=== PATIENT | female | born 1990 | race Caucasian/White ===

== ENCOUNTER → 2016-06-30 | Outpatient (CLI) | payer OTHER ==
[~2016-06-30] MED LIST: ACET-749 PO; BSP5 PO; LMC25 PO; ONDA4TAB46 PO; OXYC-57 PO; PRENTAB26 PO
[2016-06-30 18:15] LABS: URINE APPEARANCE CLEAR (CLEAR); URINE BILIRUBIN NEG (NEG); URINE COLOR ORANGE; URINE EPITHELIAL CELL AUTO >30 /lpf (0-5); URINE NITRITE NEG (NEG); URINE PH 6.5 (4.5-7.5); URINE SPECIFIC GRAVITY 1.027 (1.000-1.030); UROBILINOGEN NEG (NEG)
[2016-06-30 18:41] LABS: MANUAL MICROSCOPIC REQUIRED? NO; REVIEW REQ? NO
[2016-07-03 02:30] LABS: CHLAMYDIA TRACH RNA*** NOT DETECTED (NOT DETECTED); GC (NEIS GONORRHOEAE)RNA** NOT DETECTED (NOT DETECTED)
== END | disposition home or self-care (01) ==
LOC: C.LABSPEC 17:43
PROVIDERS: ATTEND Obstetrics & Gynecology
DX: O09.219 Supervision of pregnancy with history of pre-term labor, unspecified trimester (principal); O09.30 Supervision of pregnancy with insufficient antenatal care, unspecified trimester; Z3A.00 Weeks of gestation of pregnancy not specified

== ENCOUNTER 2016-07-09 05:32 | Inpatient (IN) | payer OTHER ==
[2016-07-08 14:35] LABS: URINE APPEARANCE CLEAR (CLEAR); URINE BILIRUBIN NEG (NEG); URINE COLOR YELLOW; URINE EPITHELIAL CELL AUTO 20-30 /lpf (0-5); URINE NITRITE NEG (NEG); URINE PH 7.5 (4.5-7.5); URINE SPECIFIC GRAVITY 1.016 (1.000-1.030); UROBILINOGEN NEG (NEG)
[2016-07-08 14:38] LABS: MANUAL MICROSCOPIC REQUIRED? NO; REVIEW REQ? NO; SULFASALICYLIC ACID POS (NEG)
[2016-07-08 14:53] LABS: MEAN CELL VOLUME 86.2 fL (80-100); MEAN CORPUSCULAR HEMOGLOBIN 28.8 pg (25-34); MEAN CORPUSCULAR HGB CONC 33.4 g/dl (32-36); MEAN PLATELET VOLUME 10.6 fL (7.4-10.4); PLATELET COUNT 315 K/uL (130-400); RED BLOOD COUNT 4.06 M/uL (4.2-5.4); WHITE BLOOD COUNT 10.25 K/uL (4.8-10.8)
[2016-07-08 15:25] LABS: BASO % 0.2 %; BASO ABS # 0.02 K/uL (0-0.2); COMPLETE YES; EOS % 1.1 %; IG% 0.2 %; LYMPH % 21.1 %; LYMPH ABS # 2.16 K/uL (1.2-3.4); MONO % 6.5 %; NEUT % 70.9 %
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
[2016-07-09] VITALS (14 sets, daily range): BP systolic 110–125; BP diastolic 67–79; PULSE 77–91; TEMP 36.6–36.7; O2SAT 96–99; Ht 170.2 cm; Wt 86.5 kg
[~2016-07-09] VITALS: Ht 170.2 cm; Wt 86.5 kg
[~2016-07-09 05:32] MED LIST changes: -ACET-749 PO; -BSP5 PO; -LMC25 PO; -OXYC-57 PO
[2016-07-09] MEDS ORDERED: LACTATED RINGER'S 1000ML 1,000 ML IV ONE (05:37)
[2016-07-09] MEDS ORDERED: LACTATED RINGER'S 1000ML 1,000 ML IV SCH (06:00)
[2016-07-09] MEDS ORDERED: CITRIC ACID/SODIUM CITRATE 15 ML UDC PO SCH (06:00)
[2016-07-09] MEDS ORDERED: CEFAZOLIN IV 2,000 MG in DEXTROSE 5% 50ML IV SCH (06:00)
[2016-07-09 06:44] LABS: BASO % 0.2 %; BASO ABS # 0.02 K/uL (0-0.2); COMPLETE YES; EOS % 1.2 %; HEMATOCRIT 33.4 % (37-47); IG% 0.4 %; LYMPH % 21.2 %; LYMPH ABS # 2.13 K/uL (1.2-3.4); MEAN CELL VOLUME 86.5 fL (80-100); MEAN CORPUSCULAR HEMOGLOBIN 28.2 pg (25-34); MEAN CORPUSCULAR HGB CONC 32.6 g/dl (32-36); MEAN PLATELET VOLUME 10.3 fL (7.4-10.4); MONO % 8.3 %; NEUT % 68.7 %; PLATELET COUNT 285 K/uL (130-400); RED BLOOD COUNT 3.86 M/uL (4.2-5.4); WHITE BLOOD COUNT 10.06 K/uL (4.8-10.8)
[2016-07-09] MEDS ORDERED: MIDAZOLAM HCL 1 MG/ML 2ML VIAL ONE (07:17)
[2016-07-09] MEDS ORDERED: MoRPHine SULFATE PF 1 MG/ML 10 ML AMP/VIAL ONE (07:17)
[2016-07-09] MEDS ORDERED: OXYTOCIN INJ 10 UNITS/ML VIAL ONE ×2 (07:17→08:34)
[2016-07-09] MEDS ORDERED: FENTANYL CITRATE INJ 50 MCG/1 ML 2 ML VIAL ONE (07:17)
[2016-07-09] MEDS ORDERED: INFLUENZA ADMINISTRATION CHARGE ONE (07:45)
[2016-07-09] MEDS ORDERED: INFLUENZA VIRUS QUAD VACCINE 0.5 ML SYR IM. ONE (07:45)
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
[2016-07-09] MEDS ORDERED: ONDANSETRON INJ 2 MG/ML 2 ML VIAL ONE (08:23)
[2016-07-09] MEDS ORDERED: PHENYLEPHRINE 100MCG/ML 5ML SYR ONE (08:23)
[2016-07-09] MEDS ORDERED: KETOROLAC TROMETHAMINE 30 MG/ML VIAL ONE (08:23)
[2016-07-09] MEDS ORDERED: DIPHTHERIA/TETANUS/PERTUSSIS 0.5 ML SYR/VIAL IM. ONE (08:45)
[2016-07-09] MEDS ORDERED: LANOLIN OINT EXT PRN ×2 (08:45)
[2016-07-09] MEDS ORDERED: BENZOCAINE 20% AER SPR 82.5 GM CAN EXT PRN (08:45)
[2016-07-09] MEDS ORDERED: MAGNESIUM HYDROXIDE SUSP 30 ML UDC PO PRN (08:45)
[2016-07-09] MEDS ORDERED: HYDROCORTISONE ACETATE 25 MG SUPP PR PRN (08:45)
[2016-07-09] MEDS ORDERED: SUPERCREAM 0.870 % 15GM JAR EXT PRN (08:45)
--- NOTE | 2016-07-09 08:51 | [facility] Post Operative Brief Note ---
Immediate Operative Summary Operative Date Jul 09, 2016. Pre-Operative Diagnosis 1. Prior Caesarean Section 2. Declines TOLAC Post-Operative Diagnosis Same Procedure(s) Performed Repeat lower uterine transverse caesarean section for the of a viable male child at 0813. Surgeon Dr. Nieves Awning Hanger Supervisor Surgeon(s) Dr. Mark Harrington Estimated Blood Loss 500cc Findings Term infant in vertex position. Normal tubes and ovaries. Specimens Placenta: Hold Cord blood obtained Complication(s) None Disposition L&D
[2016-07-09] MEDS ORDERED: SODIUM CHLORIDE 0.9% 1000ML 1,000 ML IV PRN (09:02)
[2016-07-09] MEDS ORDERED: NALOXONE HCL INJ 1 MG in SODIUM CHLORIDE 0.9% 1000ML 1,000 ML IV PRN (09:02)
[2016-07-09] MEDS ORDERED: NALOXONE HCL INJ 0.08 MG in SYRINGE 1.8 ML IV PRN (09:02)
[2016-07-09] MEDS ORDERED: LACTATED RINGER'S 1000ML 500 ML IV PRN (09:02)
[2016-07-09] MEDS ORDERED: NO NARCOTICS OR SEDATIVES SCH (09:15)
[2016-07-09] MEDS ORDERED: MEPERIDINE HCL 25 MG/ML CARP IV PRN (09:15)
[2016-07-09] MEDS ORDERED: DiphenhydrAMINE HCL 50 MG/ML VIAL IV PRN ×2 (09:15)
[2016-07-09] MEDS ORDERED: METOCLOPRAMIDE HCL INJ 20 MG in SODIUM CHLORIDE 0.9% 50ML 50 ML IV PRN (09:15)
[2016-07-09] MEDS ORDERED: LORAZEPAM 0.5 MG TAB PO PRN (09:15)
[2016-07-09] MEDS ORDERED: LORAZEPAM INJ 0.5 MG in SYRINGE 0.75 ML IV PRN (09:15)
[2016-07-09] MEDS ORDERED: EpHEDrine SULFATE INJ 50 MG/ML AMP IV PRN (09:15)
[2016-07-09] MEDS ORDERED: MoRPHine SULFATE 2 MG/ML CARP IV PRN (09:15)
[2016-07-09] MEDS ORDERED: NALOXONE HCL 0.4 MG/1 ML VIAL/CARP IV PRN (09:15)
[2016-07-09] MEDS ORDERED: NALBUPHINE HCL INJ 10 MG/ML AMP IV PRN (09:15)
[2016-07-09] MEDS ORDERED: MoRPHine SULFATE PF 1 MG/ML 10 ML AMP/VIAL EPI PRN (09:15)
[2016-07-09] MEDS ORDERED: PROMETHAZINE HCL INJ 25 MG in SODIUM CHLORIDE 0.9% 50ML 50 ML IV PRN (09:15)
[2016-07-09] MEDS ORDERED: ONDANSETRON INJ 2 MG/ML 2 ML VIAL IV PRN (09:15)
[2016-07-09] MEDS: OXYTOCIN INJ 20 UNITS in LACTATED RINGER'S 1000ML 1,000 ML IV SCH ×2 (11:44→22:29)
[2016-07-09] MEDS: KETOROLAC TROMETHAMINE 30 MG/ML VIAL IV. PRN ×2 (12:53→19:15)
--- NOTE | 2016-07-09 16:28 | Anesthesiology Progress Note ---
Anesthesia Post Op Note Date & Time Jul 09, 2016 at 16:29 Vital Signs Pain Intensity: 6.0 Vital Signs Past 12 Hours Date Time Temp Pulse Resp B/P Pulse Ox O2 Delivery O2 Flow Rate FiO2 07/09/16 15:00 18 98 07/09/16 14:00 18 99 07/09/16 13:00 85 18 112/71 99 Room Air 07/09/16 13:00 18 99 07/09/16 12:25 99 Room Air 07/09/16 12:25 99 Room Air 07/09/16 12:25 36.7 91 18 125/79 99 Room Air 07/09/16 12:25 18 99 Notes Mental Status: alert / awake / arousable, participated in evaluation Pt Amnestic to Procedure: Yes Nausea / Vomiting: adequately controlled Pain: adequately controlled Airway Patency, RR, SpO2: stable & adequate BP & HR: stable & adequate Hydration State: stable & adequate Neuraxial Anesthesia: was administered, sensory block resolved Anesthetic Complications: no major complications apparent
[2016-07-09] MEDS: DOCUSATE SODIUM 100 MG CAP PO SCH (21:01)
[2016-07-10] VITALS (7 sets, daily range): BP systolic 106–125; BP diastolic 67–92; PULSE 72–82; TEMP 36.5–36.9; O2SAT 95–98
[2016-07-10] MEDS: KETOROLAC TROMETHAMINE 30 MG/ML VIAL IV. PRN (01:34)
[2016-07-10] MEDS ORDERED: ONDANSETRON INJ 2 MG/ML 2 ML VIAL IV PRN (02:00)
[2016-07-10] MEDS ORDERED: DC INTRASPINAL MORPHINE ONE (02:00)
[2016-07-10] MEDS ORDERED: ZOLPIDEM TARTRATE 5 MG TAB PO PRN (02:00)
[2016-07-10] MEDS ORDERED: KETOROLAC TROMETHAMINE 30 MG/ML VIAL IV. PRN (02:00)
[2016-07-10] MEDS ORDERED: DiphenhydrAMINE HCL 50 MG/ML VIAL IV PRN (02:00)
[2016-07-10] MEDS: OXYCODONE/ACETAMINOPHEN 5-325 TAB PO PRN ×5 (06:20→23:43)
[2016-07-10 07:12] LABS: BASO % 0.5 %; BASO ABS # 0.03 K/uL (0-0.2); COMPLETE YES; HEMATOCRIT 29.8 % (37-47); IG% 0.3 %; LYMPH % 18.5 %; LYMPH ABS # 1.22 K/uL (1.2-3.4); MEAN CELL VOLUME 89.2 fL (80-100); MEAN CORPUSCULAR HEMOGLOBIN 29.3 pg (25-34); MEAN CORPUSCULAR HGB CONC 32.9 g/dl (32-36); MEAN PLATELET VOLUME 10.8 fL (7.4-10.4); MONO % 10.6 %; NEUT % 68.1 %; PLATELET COUNT 199 K/uL (130-400); RED BLOOD COUNT 3.34 M/uL (4.2-5.4)
[2016-07-10] MEDS: PRENATAL VITAMIN TAB PO SCH (08:00)
--- NOTE | 2016-07-10 08:03 | Progress Note ---
Subjective Jul 10, 2016. Subjective conversation w/ patient Ambulation: ambulating normally Voiding: no voiding problems Passing Gas: Yes Diet Tolerance: Clear Liquids (transitioning to regular diet this morning), Regular Diet Lochia: Moderate (still passing some small clots) Pain: 6/10 (taking percocet for pain relief) Review of Systems Constitutional: No chills, No fever Respiratory: No cough, No shortness of breath Cardiac: No chest pain, No palpitations Abdomen: + pain (around incision site), No nausea, No vomiting Objective Vital Signs Date Time Temp Pulse Resp B/P Pulse Ox O2 Delivery O2 Flow Rate FiO2 07/10/16 04:30 36.5 72 16 106/70 Room Air 07/10/16 02:00 16 97 07/10/16 01:00 18 96 07/10/16 00:05 36.5 82 16 110/67 98 Room Air 07/10/16 00:05 98 Room Air 07/10/16 00:00 16 98 07/09/16 23:00 16 97 07/09/16 22:00 18 96 07/09/16 21:00 18 97 07/09/16 20:00 18 97 07/09/16 19:20 20 97 07/09/16 19:20 36.7 77 18 110/67 97 Room Air 07/09/16 19:00 20 97 07/09/16 18:00 18 97 07/09/16 17:00 20 97 07/09/16 16:00 18 97 07/09/16 15:40 98 Room Air 07/09/16 15:40 36.6 83 20 115/70 97 Room Air 07/09/16 15:00 18 98 07/09/16 14:00 18 99 07/09/16 13:00 85 18 112/71 99 Room Air 07/09/16 13:00 18 99 07/09/16 12:25 99 Room Air 07/09/16 12:25 99 Room Air 07/09/16 12:25 36.7 91 18 125/79 99 Room Air 07/09/16 12:25 18 99 Physical Exam General Appearance: WELL-APPEARING Respiratory/Chest: chest non-tender, lungs clear Cardiovascular: regular rate, rhythm, no murmur Abdomen: normal bowel sounds, + tenderness (mild tenderness around incision site) Fundus: Firm, Non-Tender, Relation to Umbilicus (at the umbilicus) Incision Description: Clean, Dry & Intact Extremities: normal range of motion, non-tender, no calf tenderness Laboratory Results Last 24 Hours Test 07/10/16 06:00 Assessment and Plan Post- Day#: 1 Continue Routine Care: Resident Physician Supervision Note: I was present with Dr. Pierce during the history and exam. I discussed the case with the resident and agree with the findings and plan as documented in the note. Any exceptions or clarifications are listed here: [None] Documented By: Faiza Harrington 25 F s/p Day 1 - vital signs reviewed and within normal limits - Hgb reviewed 10.9 - Blood type: O+, GBS-, Rubella immune - Pt is doing well clinically - Encourage ambulation, monitor and control pain with motrin PRN and percocet PRN, Resume regular diet, monitor lochia - Patient has given child up for adoption, she is feeling sad and anxious. Psych consult ordered - CONTINUE POST C SECTION CARE
[2016-07-10] MEDS: DOCUSATE SODIUM 100 MG CAP PO SCH ×2 (08:24→19:34)
[2016-07-10] MEDS: IBUPROFEN 600 MG TAB PO PRN ×3 (10:57→23:42)
[2016-07-10] MEDS ORDERED: NURSING VERBAL MED ORDER ONE (17:00)
[2016-07-10] MEDS: SIMETHICONE 80 MG CHEW PO SCH (17:46)
[2016-07-11] VITALS: BP 113/73; PULSE 84; TEMP 36.4
[2016-07-11] MEDS: IBUPROFEN 600 MG TAB PO PRN ×3 (06:06→16:33)
[2016-07-11] MEDS: OXYCODONE/ACETAMINOPHEN 5-325 TAB PO PRN ×3 (06:06→16:33)
[2016-07-11 06:20] LABS: HEMATOCRIT 29.8 % (37-47)
--- NOTE | 2016-07-11 07:13 | Progress Note ---
Subjective Jul 11, 2016. Subjective conversation w/ patient, physical exam Ambulation: ambulating normally Voiding: no voiding problems Passing Gas: Yes Diet Tolerance: Regular Diet Lochia: Moderate Comment: Milk coming in this morning is making patient sad once more, makes her long to feed the baby, and she is appopriately tearful, however she continues to state that she knows she made a good choice and it's just hard, which isn't surprising. She expresses gratitude for the supportive and safe environment she feels here, and wishes to stay here the full four allowed days to make sure everything is final in court on Tuesday before she needs to face what she knows will be anger and questioning at home. Review of Systems Constitutional: No chills, No fever Respiratory: No cough Cardiac: No chest pain Abdomen: No nausea, No vomiting Notes "less pain after this delivery than any of the others, at least physically." Objective Vital Signs Date Time Temp Pulse Resp B/P Pulse Ox O2 Delivery O2 Flow Rate FiO2 07/11/16 00:00 36.4 84 18 113/73 Room Air 07/11/16 00:00 Room Air 07/10/16 16:30 97 Room Air 07/10/16 16:30 36.9 72 20 119/92 97 Room Air 07/10/16 08:30 96 Room Air 07/10/16 08:30 36.5 78 20 125/85 95 Room Air Physical Exam General Appearance: WELL-APPEARING, other (very emotional, and labile - tears to speaking normally, back and forth, any given moment. States saw industrial/organizational psychologist last night and expecting visit from mental health MD today.) Respiratory/Chest: no respiratory distress, no accessory muscle use Cardiovascular: no edema Abdomen: non tender, soft Fundus: Firm Extremities: no calf tenderness Laboratory Results Last 24 Hours Test 07/11/16 06:00 Hemoglobin 9.7 g/dL Hematocrit 29.8 % Assessment and Plan Post-Op Day#: 2 Continue Routine Care: Physically recovering well, incision looks good, pain well controlled. Primary challenge is emotional. Baby will be discharged with adoptive family today. Milk is also coming in, which is making patient feel very drawn to feed the infant and making the "letting go" very hard right now. She is standing by her decision and feels confident it's right, but of course is struggling with sadness. Has the presence of mind to request mental health care which should be addressed with MD-level provider today. Plans to stay the full 4 days post- for medical reasons, but also to allow us to address social and emotional needs, including keeping her safe until the PFA and adoption are finalized Tuesday in court.
[2016-07-11] MEDS: SIMETHICONE 80 MG CHEW PO SCH ×3 (07:33→16:35)
[2016-07-11] MEDS: DOCUSATE SODIUM 100 MG CAP PO SCH ×2 (07:33→20:05)
[2016-07-11] MEDS: PRENATAL VITAMIN TAB PO SCH (07:33)
[2016-07-11 07:41] VITALS: BP 122/75; PULSE 88; TEMP 36.6
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
--- NOTE | 2016-07-11 10:47 | Progress Note ---
Progress Note Casandra is coping well with the plan for baby to leave hospital with adoptive mom today. However she had asked not to be notified of the actual time the baby would be departing, and unfortunately, the criminal defense attorney did not know that and texted Casandra to let her know the time had come. Casandra began experiencing what she is calling a panic attack, with hyperventilation, crying and blotchy skin on her face. She is being comforted by RNs and myself, and has asked to see the baby one final time before it goes. She continues to state that she wants to continue the adoption, and asks for medication to help keep her calm through this hardest part. I have prescribed 1mg ativan PO Q8h prn anxiety, first dose to be given now.
[2016-07-11] MEDS: LORAZEPAM 1 MG TAB PO PRN ×2 (10:53→20:06)
[2016-07-11] MEDS ORDERED: hydrOXYzine HCL 25 MG TAB PO PRN (11:00)
[2016-07-11] MEDS ORDERED: BusPIRone 15 MG TAB PO ONE (11:15)
[2016-07-11 16:30] VITALS: BP 128/83; PULSE 80; TEMP 37.4
[2016-07-12] VITALS: BP 119/76; PULSE 69; TEMP 36.6
[2016-07-12] MEDS: OXYCODONE/ACETAMINOPHEN 5-325 TAB PO PRN ×2 (00:01→08:56)
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
[2016-07-12] MEDS ORDERED: ACET-749 PO (08:10)
--- NOTE | 2016-07-12 08:12 | Discharge Instructions ---
Discharge Instructions Admission Reason for Admission: Previous Caesarean Section Discharge Discharge Diagnosis / Problem: , adoption Discharge Goals Goal(s): Routine recovery after Activity Recommendations Activity Limitations: per Instructions/Follow-up section . Instructions / Follow-Up Instructions / Follow-Up ACTIVITY RECOMMENDATIONS: * Gradual return to full activity over the next 2-3 weeks. * No lifting - nothing heavier than baby over the next 2-3 weeks. * Do not engage in vigorous exercise, sexual activity or sports until cleared by your physician. * Do not drive or operate any motorized equipment until cleared by your physician. * You may shower/bathe daily. MEDICATIONS: For discomfort or pain, you may use Acetaminophen (Tylenol), Ibuprofen (Advil), or Naproxen (Aleve) following the package directions. For constipation you may use Colace following the package directions. BREAST CARE: If you are not breast feeding: * Wear a supportive bra 24 hours a day for one to two weeks. * Avoid stimulating your breasts and nipples as much as possible during the first few weeks after delivery. * When taking a shower, have the warm water hit your back, not breasts. * When your breasts feel full, apply ice packs. Usually three to four times a day helps ease the discomfort. * Take a mild pain medication (Tylenol / Motrin) when you are uncomfortable. If breast feeding: * Use breast milk to lubricate nipples. Lansinoh cream may be used for sore nipples. You do not need to remove cream prior to breast feeding. If using a different brand of cream, check the label for directions regarding removal of cream prior to nursing. * Wear a supportive bra. * If having problems with breasts or breast feeding, call a regional engagement consultant or your health care provider. SPECIAL CARE INSTRUCTIONS: When you are discharged from the hospital, it is important for you to follow the instructions listed below: * During the first week at home, you should be able to care for yourself and your baby. In addition, the usual light household activities are encouraged. * Limit your activities to the way you feel. Do not try to clean the house or move furniture. Be sensible. * If you actively engage in sports and have done so up until the time of your delivery, you may resume these activities as soon as you feel able. This may take up to one month or even longer. Use good judgment. * Continue to take your vitamins for at least six weeks after the of your baby. * Your diet need not be limited unless you were on a special diet before your delivery. Breast-feeding mothers need around 2500 calories per day and at least 64-80 ounces of fluid per day (8 to 10 glasses). * You should eat foods from the four major food groups. Crash diets or fad diets are to be avoided. Eating lean meats, fresh fruits and vegetables, low-fat dairy products, high fiber foods and a regular exercise program, will help you get back to your pre- weight without putting your health at risk. * Constipation is sometimes a problem after delivery. Take a mild laxative as needed. If breast feeding, Milk of Magnesia is acceptable to use. You may use a suppository or Fleets enema. * A daily shower or tub bath is suggested. Wash incision daily with warm soapy water and pat dry. It doesn't need to be covered unless drainage is present. * A bloody vaginal discharge will usually continue until around four weeks . A small amount of bleeding may continue for as long as six weeks. Vaginal discharge changes from the bright red bleeding after delivery to pink then brownish and finally yellowish-pink before becoming white and disappearing. * Bleeding may increase with activity. Your first period may come in 4-8 weeks. If you are breast feeding, your period may be delayed even longer. * Hawley (sex) can begin whenever both you and your partner feel comfortable and do not have any form of genital infection. It is recommended that you wait at least six weeks for internal and external healing to occur. If you have questions, please talk to your health care practitioner. A condom should be used to prevent infection and . * Foreplay, gentle intercourse and lubrication is very important the first several times to prevent pain. A water-based lubricant such as K-Y jelly or Astroglide may be used. * If you have RH negative blood and your baby is RH positive, you will receive RHOGAM by injection prior to discharge. The nurse will give you a card to keep with you that has the date and place that you received RHOGAM after delivery. * During your care, you had a Rubella screen done to check for the presence of rubella antibodies in your blood. If your test was negative, you will receive a Rubella vaccine prior to discharge. This vaccine may cause a fever, soreness at the injection site and flu-like symptoms. If these symptoms persist, notify your health care practitioner. is not advised for one month after a Rubella vaccine. * Verbalizes understanding of car seat law as reviewed with patient nursing. * Car Seat hand-out given and reviewed with patient by nursing. * Shaken baby information reviewed with patient by nursing. Call you doctor if: * Heavy bleeding (saturating several pads an hour) or passing clots the size of your fist. * A fever >101 degrees F (38.3 degrees C) on two occasions four hours apart and /or chills. * Unusual pain in the pelvic or vaginal areas. * Call the doctor for any increased redness, drainage or swelling around the incision and any pain unrelieved by prescribed pain medication. * "Baby Blues" lasting longer than two weeks. If you have any questions or concerns, call your health care practitioner at . FOLLOW UP VISIT: * Please call the office at to schedule a 6 week examination. It is important you keep this appointment. It is important for you to make arrangements for either yearly or twice yearly check-ups thereafter. Current Hospital Diet Patient's current hospital diet: Regular OB Diet Discharge Diet Recommended Diet: Regular Diet Procedures Procedures Performed: Repeat lower uterine transverse caesarean section for the of a viable male child at 0813. Pending Studies Studies pending at discharge: no Medical Emergencies . Who to Call and When: Medical Emergencies: If at any time you feel your situation is an emergency, please call [phone] immediately. . Non-Emergent Contact Non-Emergency issues call your: Primary Care Provider . . "Provider Documentation" section prepared by Jessica Nieves. VTE Core Measure Inpt VTE Proph given/why not?: Treatment not indicated
--- NOTE | 2016-07-12 08:23 | Anesthesiology Progress Note ---
Anesthesia Post Op Note Date & Time Jul 12, 2016 at 08:23 Vital Signs Pain Intensity: 6.0 Vital Signs Past 12 Hours Date Time Temp Pulse Resp B/P Pulse Ox O2 Delivery O2 Flow Rate FiO2 07/12/16 00:00 Room Air 07/12/16 00:00 36.6 69 18 119/76 Room Air Notes Mental Status: alert / awake / arousable, participated in evaluation Pt Amnestic to Procedure: Yes Nausea / Vomiting: adequately controlled Pain: adequately controlled Airway Patency, RR, SpO2: stable & adequate BP & HR: stable & adequate Hydration State: stable & adequate Neuraxial Anesthesia: was administered, sensory block resolved Anesthetic Complications: no major complications apparent
[2016-07-12 08:50] VITALS: BP 125/83; PULSE 78; TEMP 36.8; O2SAT 98
[2016-07-12] MEDS: IBUPROFEN 600 MG TAB PO PRN ×2 (08:56)
[2016-07-12] MEDS: PRENATAL VITAMIN TAB PO SCH (08:58)
[2016-07-12] MEDS: DOCUSATE SODIUM 100 MG CAP PO SCH (08:58)
[2016-07-12] MEDS: SIMETHICONE 80 MG CHEW PO SCH (08:59)
[2016-07-12] MEDS ORDERED: LMC25 PO (09:30)
[2016-07-12] MEDS ORDERED: BSP5 PO (09:30)
--- NOTE | 2016-07-12 09:36 | Psychiatric Progress Notes ---
Psychiatric Progress Note Date of Service Jul 12, 2016. Notes ID: Patient reviewed with liaison nurse and Dr. Ruiz (via phone). initial consult reviewed. recommend lamictal and buspar for bipolar II disorder with anxiety. CC: "I'm going home today" HPI: denies issues overnight, states she has things she is looking forward to, smiled when I referred to eric which were apparently given to her by adoptive mother of baby. ROS: denies SI, or med side effects MSE: alert, cooperative, thoughts organized, no SI/HI/solorio. Imp: bipolar II dx per Dr. Ruiz, hx of post depression Plan: liaison to assist with establishing outpatient therapy and med management providers patient aware of risks of rash with Lamictal and agrees to hold/contact an MD as needed, reviewed that dose will need to be titrated to 50 mg in 2 weeks then likely further after that would monitor mood with serial Stanford depression scales at outpatient appts agree no acute need for inpatient hospitalization reviewed that 2nd dose of buspar shouldn't be taken too close to evening/ bedtime. rx's for 1 month supply transmitted to pharmacy of choice at solar sales associate request
[2016-07-12] MEDS ORDERED: OXYC-57 PO (12:22)
[2016-07-12 12:40] VITALS: BP_DIAS 83; PULSE 78; TEMP 36.8
--- NOTE | 2016-07-15 13:08 | OPERATIVE REPORT ---
DATE OF OPERATION: 07/09/2016 PREOPERATIVE DIAGNOSIS: 1. Prior section x3. 2. Declines trial of labor after . 3. Blas intrauterine at term. POSTOPERATIVE DIAGNOSIS: Same. PROCEDURE: Repeat lower uterine transverse section for of a viable male child at 8:13 a.m. SURGEON: Dr. Nieves. BEATER ENGINEER: Dr. Faiza Harrington. ESTIMATED BLOOD LOSS: 500 mL. FINDINGS: Term infant in vertex presentation with normal ovaries and tubes. SPECIMENS: Placenta for hold and cord blood was obtained. COMPLICATIONS: None. DISPOSITION: Stable in labor and delivery. OPERATION AND FINDINGS: DESCRIPTION: Casandra was placed on the table in the supine position with a leftward tilt and prepped and draped in standard sterile fashion and a hard time-out was taken prior to proceeding. A Pfannenstiel incision was created through her prior lower abdominal scar. Of note, the patient had 2 scars, 1 in the typical Pfannenstiel location under the pannus and 1 on the lower abdomen several inches below the umbilicus. The patient stated she had significant scarring at her Pfannenstiel and asked that we use the upper scar for entry on this occasion which we did. Her incision was carried down to the fascia which was incised and dissected off the underlying rectus. The midline of the rectus was bluntly and the peritoneum was bluntly entered. A bladder blade was placed and the lower uterine transverse incision was created after bladder flap was made. Final entry to the uterus was made in a blunt manner using the apron operator's fingers. The vertex was elevated to the hysterotomy and delivered using mild fundal pressure. The cord was doubly clamped and the infant was taken to the warmer after the cord was cut. The placenta was manually extracted. The uterus was then exteriorized, cleared of all clot and debris using a dry lap sponge and the hysterotomy was repaired in 2 layer fashion using 0 Vicryl suture in a running locked manner. Tubes and ovaries were seen to be normal. The gutters were cleared of all clot and debris. The uterus was gently reinternalized. The rectus were allowed to reapproximate naturally and the fascia was closed using 1-0 Vicryl in a running nonlocked manner. At the completion of the repair, the fascia was found to be free of defect. Subcutaneous tissue was copiously irrigated and the skin was closed using 4-0 Monocryl with Dermabond dressing. The patient was then transferred in stable condition to the recovery room. I attest to the content of the Intraoperative Record and any orders documented therein. Any exceptio ns are noted below.
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
== END 2016-07-12 12:40 | disposition home or self-care (01) | DRG 765 ==
LOC: EEVIPCON 05:32 → C.LD 05:32 → C.OBG 12:30 → EDSTATUS 16:04
PROVIDERS: ADMIT Obstetrics & Gynecology; ATTEND Obstetrics & Gynecology
PROC: 10D00Z1 Extraction of Products of Conception, Low, Open Approach (ICD-10-PCS; principal; 2016-07-09 07:30)
DX: O34.211 Maternal care for low transverse scar from previous cesarean delivery (principal); F31.81 Bipolar II disorder; O99.345 Other mental disorders complicating the puerperium; F43.21 Adjustment disorder with depressed mood; Z91.410 Personal history of adult physical and sexual abuse; F41.9 Anxiety disorder, unspecified; Z37.0 Single live birth; Z3A.40 40 weeks gestation of pregnancy

== ENCOUNTER → 2017-06-10 | Outpatient (CLI) | payer OTHER ==
[~2017-06-10] MED LIST changes: +BSP5 PO; +LMC25 PO; +OXYC-57 PO
== END | disposition home or self-care (01) ==
LOC: C.LABSPEC 15:50
PROVIDERS: ATTEND Obstetrics & Gynecology
DX: O34.219 Maternal care for unspecified type scar from previous cesarean delivery (principal)

== ENCOUNTER → 2017-06-21 | Outpatient (CLI) | payer OTHER ==
[2017-06-21 13:19] LABS: BASO % 0.2 %; BASO ABS # 0.02 K/uL (0-0.2); EOS ABS # 0.19 K/uL (0-0.5); HEMATOCRIT 32.8 % (37-47); HEMOGLOBIN 10.8 g/dL (12.0-16.0); IG# 0.03 K/uL (0.00-0.02); LYMPH % 19.6 %; MEAN CORPUSCULAR HEMOGLOBIN 28.6 pg (25-34); MEAN CORPUSCULAR HGB CONC 32.9 g/dl (32-36); MEAN PLATELET VOLUME 10.6 fL (7.4-10.4); MONO % 6.4 %; MONO ABS # 0.62 K/uL (0.11-0.59); NEUT % 71.5 %; NEUT ABS # 6.92 K/uL (1.4-6.5); PLATELET COUNT 261 K/uL (130-400); RED CELL DISTRIBUTION WIDTH CV 15.3 % (11.5-14.5); RED CELL DISTRIBUTION WIDTH SD 48.6 fL (36.4-46.3); WHITE BLOOD COUNT 9.68 K/uL (4.8-10.8)
== END | disposition home or self-care (01) ==
LOC: C.LAB1850 12:13
PROVIDERS: ATTEND Obstetrics & Gynecology
DX: O34.219 Maternal care for unspecified type scar from previous cesarean delivery (principal); O09.30 Supervision of pregnancy with insufficient antenatal care, unspecified trimester; O30.002 Twin pregnancy, unspecified number of placenta and unspecified number of amniotic sacs, second trimester; Z3A.00 Weeks of gestation of pregnancy not specified

== ENCOUNTER → 2017-07-04 | Outpatient (CLI) | payer OTHER | END | disposition home or self-care (01) | LOC: C.LABSPEC 13:26 | PROVIDERS: ATTEND Obstetrics & Gynecology | DX: O30.042 Twin pregnancy, dichorionic/diamniotic, second trimester (principal); Z3A.00 Weeks of gestation of pregnancy not specified ==